=== PATIENT | female | born 1995 | race Hispanic/Latino ===

== ENCOUNTER 2019-11-27 13:01 | Observation (INO) | payer BC ==
[~2019-11-27] VITALS: Ht 165.1 cm; Wt 78.0 kg
== END 2019-11-27 14:50 | disposition home or self-care (01) ==
LOC: LDH 13:01
PROVIDERS: ADMIT Specialist; ATTEND Specialist
DX: Z34.93 Encounter for supervision of normal pregnancy, unspecified, third trimester (principal); Z3A.36 36 weeks gestation of pregnancy
CPT/HCPCS: 59025; 76819; G0378

== ENCOUNTER 2019-12-19 14:44 | Inpatient (IN) | payer BC ==
[~2019-12-19] VITALS: Ht 165.1 cm; Wt 78.9 kg
[2019-12-21] MEDS: MISOPROSTOL 100 MCG TABLET VG SCH (18:45)
[2019-12-21] MEDS ORDERED: AMPICILLIN 2GM+NS 100ML 100 ML IV SCH (18:45)
[2019-12-21 19:40] LABS: HEMATOCRIT 35.1 % (36-48); MEAN CORPUSCULAR HEMOGLOBIN 29.8 pg (27.0-33.0); MEAN CORPUSCULAR HGB CONC 33.9 g/dL (32.0-36.0); PLATELET COUNT (AUTO) 157 K/uL (130-400); RED BLOOD CELL COUNT(AUTO) 3.99 MIL/uL (4.00-5.50); RED CELL DISTRIBUTION WIDTH 13.2 % (11.0-15.5); WHITE BLOOD COUNT (AUTO) 10.5 K/uL (4.8-10.8)
[2019-12-21 19:41] LABS: APPEARANCE,URINE Clear (CLEAR); BILIRUBIN,URINE Negative (NEGATIVE); COLOR,URINE Yellow (YELLOW); GLUCOSE, URINE (UA) Negative (NEGATIVE); KETONES,URINE Negative (NEGATIVE); LEUKOCYTE ESTERASE ,URINE Trace (NEGATIVE); NITRATE,URINE Negative (NEGATIVE); OCCULT BLOOD,URINE Negative (NEGATIVE); PH,URINE 6.5 (5.0-8.0); PROTEIN,URINE Negative (NEGATIVE); UROBILINOGEN,URINE 0.2 mg/dL (0.2-1.0)
[2019-12-21] MEDS: LACTATED RINGERS 1000ML 1,000 ML IV PRN ×2 (19:45→23:20)
[2019-12-21] MEDS ORDERED: OXYTOCIN-LR 20 UNITS/1000 ML 1,000 ML IV SCH (19:45)
[2019-12-21 19:46] LABS: BACTERIA,URINE Rare /HPF (None Seen); RBC,URINE 0-1 /HPF (0-1)
[2019-12-21 19:50] LABS: SQUAMOUS EPITHELIAL CELL,UR Few /HPF (0-2); TRANSITIONAL EPI CELLS,URINE Rare /HPF (None Seen)
[2019-12-21 19:51] LABS: YEAST,URINE BUDDING Few /HPF (None Seen)
[2019-12-21 20:40] VITALS: BP 125/89
[2019-12-21] MEDS: AMPICILLIN 1GM+NS 50ML 50 ML IV SCH (23:31)
[2019-12-22] MEDS: AMPICILLIN 1GM+NS 50ML 50 ML IV SCH ×3 (03:34→23:00)
[2019-12-22] MEDS: LACTATED RINGERS 1000ML 1,000 ML IV PRN (03:34)
[2019-12-22] MEDS ORDERED: NALOXONE HCL 0.4 MG/1 ML ML IV PRN (09:00)
[2019-12-22] MEDS ORDERED: EPHEDRINE SULFATE 50 MG/ML AMPULE IVP PRN (09:00)
[2019-12-22] MEDS ORDERED: LACTATED RINGERS 500 ML 500 ML IV PRN (09:00)
[2019-12-22] MEDS ORDERED: FENTANYL CITRATE PF 50 MCG/1 ML 2ML VIAL ONE (09:12)
[2019-12-22] MEDS ORDERED: CEFAZOLIN SODIUM 1 GM VIAL ONE (10:41)
[2019-12-22] MEDS ORDERED: CITRIC ACID/SODIUM CITRATE 30 ML UDCUP PO PRN (10:45)
[2019-12-22] MEDS ORDERED: LACTATED RINGERS 1000ML 1,000 ML IV SCH (10:45)
[2019-12-22] MEDS ORDERED: CEFAZOLIN SODIUM 1 GM VIAL IVP PRN (10:45)
[2019-12-22] MEDS ORDERED: CEFAZOLIN SODIUM 1 GM VIAL IVP ONE (11:00)
[2019-12-22] MEDS ORDERED: OXYTOCIN-LR 20 UNITS/1000 ML 1,000 ML IV PRN (11:45)
[2019-12-22] MEDS ORDERED: SODIUM CHLORIDE 0.9% 10 ML VIAL IVP PRN (11:45)
[2019-12-22] MEDS ORDERED: PROMETHAZINE HCL 25 MG/ML 1ML AMPULE IM PRN (11:45)
[2019-12-22] MEDS ORDERED: MEPERIDINE-PF 75 MG/ML SYG IM PRN (11:45)
--- NOTE | 2019-12-22 13:40 | NUR ---
ASSESSMENT DONE AT 1340 ON 12/22/19 NOT 12/20/19
[2019-12-22 13:45] VITALS: BP 129/73
[2019-12-22 16:48] VITALS: BP 117/65
--- NOTE | 2019-12-22 17:30 | NUR ---
SPOKE WITH MAN BOLAND TO INFORM OF PATIENTS TEMP OF 100.4 TYLENOL 1G Q4 ORDERED.
[2019-12-22] MEDS ORDERED: ACETAMINOPHEN EXTRA STRENGTH 500 MG TABLET PO PRN (17:45)
[2019-12-22] MEDS ORDERED: PNV1TABL17 PO (18:46)
[2019-12-22] MEDS: DEXTROSE 5 %-0.45 % NACL 1,000 ML IV PRN (19:10)
[2019-12-22 19:24] VITALS: BP 128/72
[2019-12-22] MEDS: MISOPROSTOL 100 MCG TABLET VG SCH (22:45)
[2019-12-22 23:49] VITALS: BP 116/65
[2019-12-22 23:55] VITALS: BP 153/96
[2019-12-23] MEDS ORDERED: MEPERIDINE-PF 100 MG/ML SYG ONE (02:04)
--- NOTE | 2019-12-23 02:20 | NUR ---
EPIDURAL D/C EPIDURAL DISCONTINUED. BLUE TIP INTACT. PATIENT ASSISTED INTO L. LATERAL POSITION AFTER. PATIENT INSTRUCTED TO CALL FOR ASSISTANCE IF NEEDING ANYTHING.
[2019-12-23] MEDS: MISOPROSTOL 100 MCG TABLET VG SCH ×3 (02:45→22:45)
[2019-12-23] MEDS: AMPICILLIN 1GM+NS 50ML 50 ML IV SCH ×4 (03:00→23:00)
[2019-12-23 03:46] VITALS: BP 108/67
--- NOTE | 2019-12-23 05:55 | NUR ---
PATIENT ACTIVITY PATIENT ASSISTED TO DANGLE LEGS. PATIENT ATTEMPTED TO STAND TO AMBULATE TO BEDSIDE CHAIR BUT SAID SHE WAS FEELING DIZZY. PATIENT APPEARED PALE. PATIENT ASSISTED BACK INTO BED. PATIENT PLACED ON L. LATERAL POSITION. PATIENT STATED SHE DID NOT FEEL DIZZY ANYMORE. PATIENT TOLD TO CALL FOR ASSISTANCE IF NEEDING ANYTHING. CALL LIGHT PLACED WITHIN REACH.
[2019-12-23 07:11] LABS: HEPATITIS Bs ANTIGEN SCREEN P Negative (Negative)
[2019-12-23 07:29] LABS: HEMATOCRIT 31.2 % (36-48); MEAN CORPUSCULAR HEMOGLOBIN 30.1 pg (27.0-33.0); MEAN CORPUSCULAR HGB CONC 33.3 g/dL (32.0-36.0); MEAN CORPUSCULAR VOLUME 90.2 fL (79-99); PLATELET COUNT (AUTO) 122 K/uL (130-400); RED BLOOD CELL COUNT(AUTO) 3.46 MIL/uL (4.00-5.50); RED CELL DISTRIBUTION WIDTH 13.4 % (11.0-15.5); WHITE BLOOD COUNT (AUTO) 9.4 K/uL (4.8-10.8)
[2019-12-23 07:45] VITALS: BP 123/83
[2019-12-23] MEDS ORDERED: ACETAMINOPHEN-CODEINE 300/30MG TAB PO PRN (08:00)
[2019-12-23] MEDS ORDERED: BISACODYL 10 MG SUPP.RECT RC PRN (08:00)
[2019-12-23] MEDS ORDERED: ACETAMINOPHEN EXTRA STRENGTH 500 MG TABLET PO PRN (08:00)
[2019-12-23] MEDS ORDERED: LANOLIN 30GM OINTMENT TP PRN (08:00)
[2019-12-23] MEDS ORDERED: HYDROCODONE/ACETAMINOPHEN 5/325 MG TAB PO PRN (08:00)
[2019-12-23] MEDS ORDERED: IBUPROFEN 600 MG TABLET PO PRN (08:00)
[2019-12-23] MEDS: SIMETHICONE 80 MG TAB.CHEW PO PRN ×2 (09:24→21:03)
[2019-12-23] MEDS: DOCUSATE SODIUM 100 MG CAP PO SCH ×2 (09:24→21:02)
--- NOTE | 2019-12-23 10:00 | NUR ---
DRESSING REMOVED. INCISION INTACT, STERISTRIPS AND TELFA APPLIED. ABDOMINAL BINDER IN PLACE. GRIFFIN CATHETER REMOVED WITH TIP INTACT. ASSISTED PATIENT TO SIDE OF BED. PATIENT C/O DIZZINESS. PATIENT SAT BACK DOWN. ORANGE JUICE GIVEN. ADVISED PATIENT NOT TO AMBULATE ALONE AND TO CALL FOR ASSISTANCE
[2019-12-23] MEDS: DEXTROSE 5 %-0.45 % NACL 1,000 ML IV PRN (10:44)
[2019-12-23 11:39] VITALS: BP 110/83
[2019-12-23] MEDS: IBUPROFEN 800 MG TAB PO SCH ×2 (12:17→20:05)
[2019-12-23 16:40] VITALS: BP 111/67
[2019-12-23] MEDS ORDERED: MEASLES/MUMPS/RUBELLA VACCINE, LIVE 0.5 ML/VIAL SQ ONE (16:45)
[2019-12-23] MEDS ORDERED: DIPH,PERTUSS(ACELL),TET VAC/PF 0.5 ML VIAL IM ONE (16:45)
[2019-12-23 19:25] VITALS: BP 110/81
[2019-12-23 23:50] VITALS: BP 100/65
[2019-12-24 03:40] VITALS: BP 119/82
[2019-12-24] MEDS: IBUPROFEN 800 MG TAB PO SCH (04:26)
[2019-12-24] MEDS: MISOPROSTOL 100 MCG TABLET VG SCH (06:45)
[2019-12-24 07:33] VITALS: BP 109/65
[2019-12-24] MEDS: DOCUSATE SODIUM 100 MG CAP PO SCH (08:05)
[2019-12-24] MEDS ORDERED: ACET1TAB25 PO (09:13)
--- NOTE | 2019-12-24 09:20 | NUR ---
verbal and written discharge instructions given, informed of the follow up appointment. prescription given, all questions answered, informed to call the doctor for future concerns, pt voiced understanding to all things discussed. Addendum: 12/24/19 at 0941 by JOSE JACKSON RN Amended: Links added.
[2019-12-24 11:09] VITALS: BP 130/88
--- NOTE | 2019-12-24 11:25 | NUR ---
pt is dismissed in stable condition, brought to private car via wheelchair by iggy Waldrop pcp Addendum: 12/24/19 at 1131 by JOSE JACKSON RN Amended: Links added.
== END 2019-12-24 11:40 | disposition home or self-care (01) | DRG 788 ==
LOC: OBSVTOIN 12-21 18:36 → LDH 12-21 18:36 → WSH 12-22 13:40
PROVIDERS: ADMIT Specialist; ATTEND Specialist
PROC: 10D00Z1 Extraction of Products of Conception, Low, Open Approach (ICD-10-PCS; principal; 2019-12-22 10:30)
PROC: 3E0234Z Introduction of Serum, Toxoid and Vaccine into Muscle, Percutaneous Approach (ICD-10-PCS; 2019-12-23)
PROC: 3E0134Z Introduction of Serum, Toxoid and Vaccine into Subcutaneous Tissue, Percutaneous Approach (ICD-10-PCS; 2019-12-23)
DX: O69.81X0 Labor and delivery complicated by cord around neck, without compression, not applicable or unspecified (principal); O24.420 Gestational diabetes mellitus in childbirth, diet controlled; O76 Abnormality in fetal heart rate and rhythm complicating labor and delivery; Z37.0 Single live birth; Z3A.40 40 weeks gestation of pregnancy; Z23 Encounter for immunization
CPT/HCPCS: 36415; 59510; 81001; 82947; 85027; 86592; 86850; 86900; 86901; 87340; 90707; 90715; A4314; A4344; G0378; J0290; J0690; J2175; J2550; J2590; J3010; J7120

== ENCOUNTER → 2019-12-21 | Emergency (ER) | payer BC ==
[~2019-12-21] MED LIST: ACET1TAB25 PO; PNV1TABL17 PO
== END ==
LOC: EDH 18:18
DX: Z53.21 Procedure and treatment not carried out due to patient leaving prior to being seen by health care provider (principal)

== ENCOUNTER 2022-05-07 07:00 | Observation (INO) | payer OTHER ==
[~2022-05-07] VITALS: Ht 172.7 cm; Wt 86.2 kg
[~2022-05-07 07:00] MED LIST changes: +ACET-2079 PO; -ACET1TAB25 PO
[2022-05-07 07:01] VITALS: BP 122/80
[2022-05-07 07:40] LABS: APPEARANCE,URINE CLEAR (CLEAR); BILIRUBIN,URINE NEGATIVE (NEGATIVE); COLOR,URINE YELLOW (YELLOW); GLUCOSE, URINE (UA) NEGATIVE (NEGATIVE); KETONES,URINE NEGATIVE (NEGATIVE); LEUKOCYTE ESTERASE ,URINE NEGATIVE (NEGATIVE); NITRATE,URINE NEGATIVE (NEGATIVE); OCCULT BLOOD,URINE NEGATIVE (NEGATIVE); PROTEIN,URINE NEGATIVE (NEGATIVE); UROBILINOGEN,URINE 0.2 mg/dL (0.2-1.0)
[2022-05-07] MEDS ORDERED: LACTATED RINGERS 1000ML 1,000 ML IV PRN (08:30)
[2022-05-07] MEDS ORDERED: OXYTOCIN-LR 20 UNITS/1000 ML 1,000 ML IV SCH (08:30)
[2022-05-09] MEDS ORDERED: MORPHINE PF 100MG/10ML AMP IV ONE (05:01)
[2022-05-09] MEDS ORDERED: FENTANYL CITRATE PF 50 MCG/1 ML 2ML VIAL ONE (05:01)
[2022-05-09] MEDS ORDERED: OXYTOCIN 10 USP UNITS/ML ONE (05:27)
[2022-05-09] MEDS ORDERED: PHENYLEPHRINE HCL 10 MG/ML 1ML VIAL IV ONE (05:36)
[2022-05-09] MEDS ORDERED: METOCLOPRAMIDE 10 MG/2 ML VIAL ONE (05:36)
== END 2022-05-07 08:40 | disposition home or self-care (01) ==
LOC: EDH 07:00 → LDH 07:18
PROVIDERS: ADMIT Obstetrics & Gynecology; ATTEND Obstetrics & Gynecology
DX: O62.9 Abnormality of forces of labor, unspecified (principal); Z3A.38 38 weeks gestation of pregnancy
CPT/HCPCS: 59025; 81003; G0378; G0379

== ENCOUNTER 2022-05-09 03:01 | Inpatient (IN) | payer OTHER ==
[~2022-05-09] VITALS: Ht 165.1 cm; Wt 82.6 kg
[2022-05-09 04:02] VITALS: BP 124/79
[2022-05-09 04:24] LABS: HEMATOCRIT 35.6 % (36-48); MEAN CORPUSCULAR HEMOGLOBIN 29.4 pg (27.0-33.0); MEAN CORPUSCULAR VOLUME 86.6 fL (79-99); RED BLOOD CELL COUNT(AUTO) 4.11 MIL/uL (4.00-5.50); RED CELL DISTRIBUTION WIDTH 13.6 % (11.0-15.5); WHITE BLOOD COUNT (AUTO) 13.8 K/uL (4.8-10.8)
[2022-05-09 04:26] LABS: APPEARANCE,URINE CLEAR (CLEAR); BILIRUBIN,URINE NEGATIVE (NEGATIVE); COLOR,URINE YELLOW (YELLOW); GLUCOSE, URINE (UA) NEGATIVE (NEGATIVE); KETONES,URINE 40 mg/dL (NEGATIVE); LEUKOCYTE ESTERASE ,URINE NEGATIVE (NEGATIVE); NITRATE,URINE NEGATIVE (NEGATIVE); OCCULT BLOOD,URINE SMALL (NEGATIVE); PROTEIN,URINE NEGATIVE (NEGATIVE); UROBILINOGEN,URINE 0.2 mg/dL (0.2-1.0)
[2022-05-09] MEDS ORDERED: LACTATED RINGERS 1000ML 1,000 ML IV PRN (04:30)
[2022-05-09] MEDS ORDERED: CEFAZOLIN SODIUM 1 GM VIAL ONE (04:40)
[2022-05-09 05:11] LABS: BACTERIA,URINE None Seen /HPF (None Seen)
[2022-05-09 05:13] LABS: MUCUS,URINE Few LPF (None Seen); SQUAMOUS EPITHELIAL CELL,UR Few /HPF (0-2)
[2022-05-09 07:21] VITALS: BP 117/82
[2022-05-09 08:25] LABS: RAPID PLASMA REAGIN NONREACTIVE (NONREACTIVE)
[2022-05-09] MEDS ORDERED: ONDANSETRON 4MG INJ IVP PRN (08:30)
[2022-05-09] MEDS ORDERED: NALOXONE HCL 0.4 MG/1 ML ML IVP PRN (08:30)
[2022-05-09] MEDS ORDERED: 0.9%NACL 10ML VIAL IVP PRN (08:30)
[2022-05-09] MEDS ORDERED: DiphenhydrAMINE HCL 50 MG/ML VIAL IVP PRN (08:30)
[2022-05-09] MEDS ORDERED: EPHEDRINE SULFATE 50 MG/ML AMPULE IVP PRN (08:30)
[2022-05-09] MEDS ORDERED: LORATADINE 10 MG TABLET PO PRN (08:30)
[2022-05-09] MEDS ORDERED: OXYTOCIN-LR 20 UNITS/1000 ML 1,000 ML IV PRN (08:30)
[2022-05-09] MEDS ORDERED: PROMETHAZINE HCL 25 MG/ML 1ML AMPULE IM PRN (08:30)
[2022-05-09] MEDS ORDERED: MEPERIDINE-PF 75 MG/ML SYG IM PRN (08:30)
[2022-05-09 11:13] VITALS: BP 110/67
[2022-05-09 16:20] VITALS: BP 113/70
[2022-05-09] MEDS: DEXTROSE 5 %-0.45 % NACL 1,000 ML IV PRN ×2 (16:41→23:59)
[2022-05-09 19:50] VITALS: BP 118/69
[2022-05-09 23:20] VITALS: BP 118/74
[2022-05-10] MEDS ORDERED: HYDROCODONE/ACETAMINOPHEN 5/325 MG TAB PO PRN (03:30)
[2022-05-10] MEDS ORDERED: LANOLIN 30GM OINTMENT TP PRN (03:30)
[2022-05-10] MEDS ORDERED: ACETAMINOPHEN WITH CODEINE 1 TAB TAB PO PRN (03:30)
[2022-05-10] MEDS ORDERED: ACETAMINOPHEN 500 MG TABLET PO PRN (03:30)
[2022-05-10] MEDS ORDERED: IBUPROFEN 600 MG TABLET PO PRN (03:30)
[2022-05-10] MEDS ORDERED: BISACODYL 10 MG SUPP.RECT RC PRN (03:30)
[2022-05-10] MEDS ORDERED: SIMETHICONE 80 MG TAB.CHEW PO PRN (03:30)
[2022-05-10 04:37] VITALS: BP 118/76
[2022-05-10 06:19] LABS: HEMATOCRIT 32.1 % (36-48); MEAN CORPUSCULAR HEMOGLOBIN 29.4 pg (27.0-33.0); MEAN CORPUSCULAR HGB CONC 33.6 g/dL (32.0-36.0); MEAN CORPUSCULAR VOLUME 87.5 fL (79-99); RED BLOOD CELL COUNT(AUTO) 3.67 MIL/uL (4.00-5.50); RED CELL DISTRIBUTION WIDTH 13.7 % (11.0-15.5)
[2022-05-10] MEDS: DEXTROSE 5 %-0.45 % NACL 1,000 ML IV PRN (06:47)
[2022-05-10 07:17] LABS: HEPATITIS Bs ANTIGEN SCREEN P Negative (Negative)
[2022-05-10 07:51] VITALS: BP 110/74
[2022-05-10] MEDS ORDERED: DOCUSATE SODIUM 100 MG CAP PO SCH (09:00)
[2022-05-10 11:45] VITALS: BP 110/70
== END 2022-05-10 14:00 | disposition home or self-care (01) | DRG 785 ==
LOC: EDH 03:01 → INTOOBSV 03:02 → LDH 03:02 → OBSVTOIN 03:02 → WSH 07:20
PROVIDERS: ADMIT Obstetrics & Gynecology; ATTEND Obstetrics & Gynecology
PROC: 10D00Z1 Extraction of Products of Conception, Low, Open Approach (ICD-10-PCS; 2022-05-09)
PROC: 0UB70ZZ Excision of Bilateral Fallopian Tubes, Open Approach (ICD-10-PCS; principal; 2022-05-09 05:23)
PROC: 3E0234Z Introduction of Serum, Toxoid and Vaccine into Muscle, Percutaneous Approach (ICD-10-PCS; 2022-05-10)
DX: O34.211 Maternal care for low transverse scar from previous cesarean delivery (principal); Z30.2 Encounter for sterilization; Z37.0 Single live birth; Z3A.38 38 weeks gestation of pregnancy; Z29.13 Encounter for prophylactic Rho(D) immune globulin
CPT/HCPCS: 36415; 59025; 81001; 81003; 82947; 83033; 85027; 86592; 86701; 86850; 86870; 86900; 86901; 87340; 87390; G0378; G0379; J0690; J2175; J2550; J2590; J2791